=== PATIENT | female | born 1965 | race Caucasian/White ===

== ENCOUNTER → 2016-12-05 | Outpatient (CLI) | payer BC ==
[~2016-12-05] MED LIST: ALBUTEROL17 GM INH; ASPIRIN81 M1 PO; ASPIRIN81 MG PO; BACTRIM DS TABL1 TA1 PO; BENZONATATE PO; CRESTOR; KEFLEX PO; LOTRISONE CREAM45 GM; MOTRIN600 M1 PO; PLAVIX PO; PREDNISONE PO; PROTONIX PO
--- NOTE | ~2016-12-05 | EKG ---
PATIENT: ELIAS ARTEAGA UNIT #: [id number] Ventricular Rate: 57 BPM Atrial Rate: 57 BPM P-R Interval: 134 ms QRS Duration: 86 ms Q-T Interval: 426 ms QTC Calculation(Bezet): 414 ms P Sidney: 44 degrees Calculated R Sidney: 6 degrees Calculated T Sidney: 33 degrees Diagnosis Line: Sinus bradycardia Diagnosis Line: Poor R wave progression questionable lead position Diagnosis Line: or body habitus Diagnosis Line: Borderline ECG Diagnosis Line: When compared with ECG of 25-OCT-2015 00:13, Diagnosis Line: No significant change was found Diagnosis Line: Confirmed by DORETHA SMART MD ([id number]) on Diagnosis Line: 12/06/2016 11:50:52 AM INTERPRETING : FRANCIS
[2016-12-05 14:02] LABS: HEMATOCRIT 32.3 % (35.0-45.0); HEMOGLOBIN 10.9 gm/dL (12.0-16.0); MEAN CELL VOLUME 89.3 FL (83-96); MEAN CORPUSCULAR HGB CONC 33.6 g/dL (30-36); MEAN PLATELET VOLUME 6.9 FL (6.5-11.5); RED BLOOD COUNT 3.62 X10e (3.90-5.30); RED CELL DISTRIBUTION WIDTH 14.1 % (11.0-15.5); WHITE BLOOD COUNT 6.1 X10e3 (4.0-10.5)
[2016-12-05 14:23] LABS: BLOOD UREA NITROGEN 10 mg/dL (9-23); CALCIUM SERUM 9.4 mg/dL (8.4-10.2); CARBON DIOXIDE 30 mmol/L (22-31); CHLORIDE 111 mmol/L (100-111); CREATININE SERUM 0.8 mg/dL (0.6-1.4); GLOM FILT RATE Estimated ABOVE60 mL/min (>60); GLUCOSE FASTING 93 mg/dL (70-110); POTASSIUM 4.2 mmol/L (3.5-5.1); SODIUM 145 mmol/L (135-145)
== END | disposition home or self-care (01) ==
LOC: CLAB 13:21
PROVIDERS: Urology
DX: R31.0 Gross hematuria (principal); R00.1 Bradycardia, unspecified
CPT/HCPCS: 36415; 80048; 85027; 93005

== ENCOUNTER → 2017-04-12 | Outpatient (CLI) | payer BC | END | disposition home or self-care (01) | LOC: CECH 14:10 | DX: R07.9 Chest pain, unspecified (principal); E87.0 Hyperosmolality and hypernatremia | CPT/HCPCS: 93306 ==